=== PATIENT | male | born 1960 | race Caucasian/White ===

== ENCOUNTER 2025-05-24 12:03 | Outpatient (CLI) | payer OTHER, SELFPAY ==
--- NOTE | ~2025-05-24 | PE_ITS ---
EXAMINATION: PET_PETPSMAST_PT DATE: 05/24/2025 15:10 INDICATION: Prostate cancer TECHNIQUE: 5.587 mCi of Illucix Ga-68([id number]) was administered i.v. Low dose computed whit graphy (CT) images were acquired from the base of the brain to the base of the brain to the proximal thighs for attenuation correction and anatomic localization. Positron emission tomography (PET) image s were acquired in the same distribution beginning 94 minutes after injection. Images including fused PET/CT images were reconstructed in axial, coronal, and sagittal planes. Automated exposure control technique was employed. The dose-length product was 1193.12mGy-cm. COMPARISON: None FINDINGS: Head/neck: Typical pattern of symmetric physiologic increased activity in the lacrimal, parotid and submandibula r glands as well as along the mucosa of the nasal and oral cavities, pharynx and hypopharynx. No path ologically enlarged cervical lymphadenopathy or suspicious foci of increased uptake in the visualized head or neck. Chest: Mild respiratory motion in the lungs. No suspicious pulmonary nodules, pneumonia, pulmonary edema or pleural effusion. Mild cardiomegaly. Atherosclerotic coronary artery calcific location. No pericardia l effusion. Fusiform ascending thoracic aortic aneurysm measuring 5.1 x 4.6 cm. No pathologically enl arged or PSMA avid thoracic lymphadenopathy. Abdomen/pelvis/proximal thighs: Physiologic renal accumulation and excretion of activity in the kidneys, bladder and along portions o f ureters. 1.8 cm exophytic cyst at the lower pole the left kidney. Prostatomegaly measuring 5.5 x 4. 7 cm. There is minimal asymmetric uptake at the left side of the prostate with maximal SUV of 2.2. No rmal degree and slightly heterogenous pattern of increased uptake throughout the liver and spleen wit hout radiologic correlate or dominant PSMA avid lesion. The gallbladder, pancreas and bilateral adren al glands are normal. Moderate uptake scattered throughout the bowels with typical duodenal and proxi mal jejunal predominance and without radiologic correlate, also likely physiologic. Moderate sigmoid and descending colon predominant diverticulosis without adjacent from trace stranding to suggest dive rticulitis. Appendix is normal. No other abnormal foci of increased uptake or pathologically enlarged lymphadenopathy in the abdomen, pelvis or proximal thighs. Musculoskeletal: Severe lower cervical and moderate thoracic and lumbar spondylosis. No suspicious lytic, blastic or a bnormally PSMA avid bone lesions. IMPRESSION: 1. Prostatomegaly with very mild asymmetric increased uptake at the left side of the prostate consist ent with reported primary prostate cancer. Unclear where this is due to a low tumor burden in the pro state or low degree of PSMA avidity, the latter which could decrease sensitivity for metastatic disea se. No lesions suspicious for metastatic disease identified. Reviewed, dictated and finalized at location A. IMPRESSION: 1. Prostatomegaly with very mild asymmetric increased uptake at the left side o f the prostate consistent with reported primary prostate cancer. Unclear where this is due to a low tumor burden in the prostate or low degree of PSMA avidity , the latter which could decrease sensitivity for metastatic disease. No lesion s suspicious for metastatic disease identified.
--- OUTSIDE RECORDS SUMMARY | 2025-05-24 12:12 | XMS_ITS | Referral Summary ---
Author Organization [facility] Address [id number] [place] [id number] Care Team Providers Care Layboy Tender Name Role Phone Nikhil Rizzo MD Primary Care Provider [phone] Encounters Date Type Department Care Team Description 04/29/2025 Orders Only [facility] [address] [phone] Nikhil Rizzo MD 04/29/2025 9:45 AM CDT - 04/29/2025 10:30 AM CDT Surgery [facility] Operating Room 1 [place] [address] Aki Venegas MD URONAV GUIDED PROSTATE BIOPSY 04/29/2025 9:49 AM CDT Anesthesia Event [facility] Operating Room 1 [place] [address] Temo Dubon DO Reynolds, Ethan Emerson, MD 04/29/2025 7:03 AM CDT - 04/29/2025 11:47 AM CDT Hospital Encounter [facility] Operating Room 1 [place] [address] Aki Venegas MD Malignant neoplasm of prostate (HCC) Discharge Disposition: Discharge to home or self care 03/25/2025 Telephone [facility] [address] [place] [address] [address] [place] [phone] Genie Soares MD 03/19/2025 9:30 AM CDT Office Visit [facility] [address] [place] [address] [address] [place] [phone] Genie Soares MD Severe obstructive sleep apnea (Primary Dx); Hypersomnia with sleep apnea; Severe obesity (BMI 35.0-35.9 with comorbidity) ([facility]) from Last 3 Months Allergies Active Allergy Reactions Criticality Noted Date Comments Chlorhexidine Itching,Rash Medium 04/29/2025 Penicillin G Anaphylaxis High 04/24/2024 Medications aspirin 81 mg enteric coated tabletIndications: Coronary artery calcification seen on CT scan,Ascending aortic aneurysm,Hyperlipi demia LDL goal <70 Take 1 tablet (81 mg total) by mouth daily 30 tablet 11 2 Active fluticasone propion-salmeteroL (Advair Diskus) 250-50 mcg/dose diskus inhaler Inhale 1 puff 2 (two) times a day Rinse mouth with water after use. Do not swallow. 60 each 11 4 Active lisinopril-hydroCH LOROthiazide (ZESTORETIC) 10-12.5 mg per tablet Take 1 tablet by mouth daily 90 tablet 3 5 Active metoprolol XL (TOPROL-XL) 25 mg extended release tabletIndications: Essential hypertension,Ascen ding aortic aneurysm Take 0.5 tablets (12.5 mg total) by mouth daily 45 tablet 1 5 Active tamsulosin (FLOMAX) 0.4 mg extended release capsule 5 Active atorvastatin (LIPITOR) 20 mg tabletIndications: Ascending aortic aneurysm TAKE 1 TABLET (20 MG TOTAL) BY MOUTH DAILY 90 tablet 3 5 Active albuterol-budesoni de 90-80 mcg/actuation HFA aerosol inhaler Inhale 1 puff every 6 (six) hours 21.4 g 11 5 04/29/20 26 Active Active Problems Problem Noted Date Diagnosed Date Malignant neoplasm of prostate 02/24/2025 Class 1 obesity due to exces s calories with serious comorbidity and body mass index (BMI) of 34.0 to 34.9 in adult 10/25/2023 Assessment & Plan (04/24/2024 12:37 PM CDT): Stable, improving; continues to have weight loss; patient is working with , has generally healthy diet; regular physical, plans to start exercise routines Assessment & Plan (10/25/2023 12:06 PM BIOLOGICAL SCIENCES PROFESSOR): Not controlled; patient continues to gain weight; reports difficulty with exercise and activity due to osteoarthritis of bilateral knees, worse in left Recommend dietary changes, limiting caloric intake through limiting portion sizes and limiting high-calorie foods Encourage 30 minutes moderate intensity exercise 5 days per week Primary osteoarthritis of both knees 10/25/2023 Assessment & Plan (04/24/2024 12:37 PM CDT): Continues to have pain and some limitations in left knee; right ankle; patient following with Orthopedic surgery for continued evaluation Assessment & Plan (10/25/2023 12:07 PM BIOLOGICAL SCIENCES PROFESSOR): Patient has varus deformity of bilateral knees; [id number] in left medial compartment; patient follows with orthopedics Would recommend steroid injections to help with pain relief until able to perform surgical treatment Benign prostatic hyperplasia with urinary freque ncy 07/04/2022 Assessment & Plan (10/25/2023 12:05 PM BIOLOGICAL SCIENCES PROFESSOR): Has been having symptoms associated with difficulty urinating, no nocturia, but weak stream in morning Increased frequency of urination during the day Will refer to Urology for evaluation, check PSA; Coronary artery calcification seen on CT scan Assessment & Plan (04/24/2024 12:37 PM CDT): Stable, well controlled; no chest pain pressure; no changes in exercise tolerance Continue ASA 81 mg daily, atorvastatin, blood pressure control as above Assessment & Plan (10/25/2023 12:05 PM BIOLOGICAL SCIENCES PROFESSOR): Well controlled, family history of heart disease Continue ASA 81 mg daily, Lipitor 20 mg daily Establishing care with new doctor, encounter for 12/31/2018 Ascending aortic aneurysm 12/31/2018 Assessment & Plan (04/24/2024 12:37 PM CDT): Stable, well controlled; follows with Cardiology for surveillance; most recent imaging demonstrates stable size Continue metoprolol 12.5 mg daily Assessment & Plan (10/25/2023 12:05 PM BIOLOGICAL SCIENCES PROFESSOR): Stable, no major concerns; likely congenital and related to family; has annual imaging to maintain stability Follows with cardiology Continue metoprolol 12.5 mg daily Murmur, heart 10/07/2018 Essential hypertension 05/11/2017 Assessment & Plan (04/24/2024 12:36 PM CDT): Stable, well controlled, blood pressure at goal No chest pain or pressure; orthostatics Continue lisinopril-hydrochlorothiazide 10-12.5 mg daily; metoprolol 12.5 mg daily Assessment & Plan (10/25/2023 12:04 PM BIOLOGICAL SCIENCES PROFESSOR): Stable, well controlled; blood pressure at goal Follows with cardiology Continue lisinopril-hydrochlorothiazide 10-12.5 mg daily, metoprolol 12.5 mg daily Mild intermittent asthma without complication Assessment & Plan (04/24/2024 12:36 PM CDT): Stable, well controlled; SpO2 was low normal; no significant dyspnea on exertion Continue Advair 1 puff b.i.d. Assessment & Plan (10/25/2023 12:04 PM BIOLOGICAL SCIENCES PROFESSOR): Stable, well controlled; does require use of albuterol p.r.n. in the morning, good relief with Advair throughout the day Continue Advair 1 puff daily, albuterol p.r.n. Hyperlipidemia LDL goal <70 09/15/2012 Overview (01/25/2017): Hyperlipidemia Assessment & Plan (04/24/2024 12:36 PM CDT): Stable, well controlled, lipids at goal; no major side effects from medication Continue atorvastatin 20 mg daily Assessment & Plan (10/25/2023 12:04 PM BIOLOGICAL SCIENCES PROFESSOR): Stable, well controlled; lipids at goal Continue atorvastatin 20 mg daily Severe obstructive sleep apnea 09/15/2012 Overview (01/25/2017): NAI on CPAP Assessment & Plan (04/24/2024 12:36 PM CDT): Stable, uses CPAP nightly Assessment & Plan (10/25/2023 12:04 PM BIOLOGICAL SCIENCES PROFESSOR): Stable, well controlled; started use CPAP, using nightly with good relief Resolved Problems Problem Noted Date Diagnosed Date Resolved Date Tired 12/31/2018 05/05/2019 Chest pain 10/07/2018 05/05/2019 Tobacco use 10/07/2018 05/05/2019 Adjustment disorder with anxious mood 09/15/2012 05/11/2017 Overview (01/24/2017): Adjustment disorder with anxiety Hypertension 09/15/2012 05/11/2017 Overview (01/25/2017): Hypertension Immunizations Immunization Administration Dates Next Due Influenza, Quadrivalent, Spl it, Preservative Free, Intramuscular 08/28/2018 Influenza, Unspecified 10/25/2023(Deferr ed: Patient Refused),08/09/2022(Deferred: Patient Refused),11/07/2021(Deferred: Patient Refused),05/17/2021(Deferred: Patient Refused),07/21/2020(Deferred: Patient Refused),05/10/2020(Deferred: Patient Refused),07/21/2019(Deferred: Patient Refused) Moderna SARS-CoV-2 Monovalen t Vaccination (12+ YRS) 03/28/2021,02/15/2021 Td, adsorbed 11/13/2009 Tdap 11/23/2014,10/28/2009 ZOSTER Recombinant 10/06/2020,05/05/2020 Social History Tobacco Use Types Packs/Day Years Used Date Smoking Tobacco: Never Smokeless Tobacco: Never Tobacco Cessation:Counseling Given: Not Answered Alcohol Use Standard Drinks/Week Comments Yes 0 (1 standard drink = 0.6 oz pur e alcohol) AUDIT-C Answer Date Recorded Q1: How often do you have a drink containing alc ohol? 2-3 times a week 04/29/2025 Q2: How many drinks containi ng alcohol do you have on a typical day when you are drinking? 3 or 4 04/29/2025 Q3: How often do you have si x or more drinks on one occasion? Monthly 04/29/2025 PHQ-2 Answer Date Recorded PHQ-2 Total Score (If total score is 3 or more points, staff should administer the PHQ-9) 1 10/25/2023 Personal Safety Answer Date Recorded Have you ever been in or are you currently in a harmful physical or emotional relationship or is someone making you feel afraid or unsafe? Denies 04/29/2025 Sex and Gender Information Value Date Recorded Sex Assigned at Not on file Legal Sex Male 1:55 AM BIOLOGICAL SCIENCES PROFESSOR Gender Identity Not on file Sexual Orientation Not on file Last Filed Vital Signs Vital Sign Reading Time Taken Comments Blood Pressure 137/87 04/29/2025 11:30 AM CDT Pulse 59 04/29/2025 11:30 AM CDT Temperature 36.1 C (97 F) 04/29/2025 11:30 AM CDT Respiratory Rate 18 04/29/2025 11:30 AM CDT Oxygen Saturation 99% 04/29/2025 11:30 AM CDT Inhaled Oxygen Concentration - - Weight 91.4 kg (201 lb 8 oz) 04/29/2025 7:48 AM CDT Height 162.6 cm (5' 4) 04/29/2025 7:48 AM CDT Body Mass Index 34.59 04/29/2025 7:48 AM CDT Plan of Treatment Not on file Procedures Procedure Name Priority Date/Time Associated Diagnosis Comments SURGICAL PATHOLOGY Routine 04/29/2025 10 :40 AM CDT Malignant neoplasm of prostate (HCC) URONAV GUIDED PROSTATE BIOPSY 04/29/2025 9:49 AM CDT Malignant neoplasm of prostate (HCC) POTASSIUM, WHOLE BLOOD STAT 04/29/2025 7:52 AM CDT PSA SCREEN Routine 10/25/2023 11:04 AM BIOLOGICAL SCIENCES PROFESSOR Screening PSA (prostate specific antigen) HEPATITIS C SCREENING Routine 12/17/2016 COLONOSCOPY Routine 11/21/2012 from Last 3 Months or Most Recently Relevant to Health Maintenance Results * Surgical pathology (04/29/2025 10:40 AM CDT) Tissue (Prostate, Needle Biopsy) 04/29/2025 10:00 AM CDT Tissue specimen (specimen) (Prostate, Needle Biopsy) 04/29/2025 10:00 AM CDT Tissue specimen (specimen) (Prostate, Needle Biopsy) 04/29/2025 10:00 AM CDT Tissue specimen (specimen) (Prostate, Needle Biopsy) 04/29/2025 10:00 AM CDT Tissue specimen (specimen) (Prostate, Needle Biopsy) 04/29/2025 10:00 AM CDT Tissue specimen (specimen) (Prostate, Needle Biopsy) 04/29/2025 10:00 AM CDT Tissue specimen (specimen) (Prostate, Needle Biopsy) 04/29/2025 10:00 AM CDT Tissue specimen (specimen) (Prostate, Needle Biopsy) 04/29/2025 10:00 AM CDT Tissue specimen (specimen) (Prostate, Needle Biopsy) 04/29/2025 10:00 AM CDT Tissue specimen (specimen) (Prostate, Needle Biopsy) 04/29/2025 10:00 AM CDT Tissue specimen (specimen) (Prostate, Needle Biopsy) 04/29/2025 10:00 AM CDT Tissue specimen (specimen) (Prostate, Needle Biopsy) 04/29/2025 10:00 AM CDT Tissue specimen (specimen) (Prostate, Needle Biopsy) 04/29/2025 10:04 AM CDT Narrative PATHOLOGY [facility] - 05/05/2025 9:28 PM CDT EPIC results best viewed via link to PDF [facility] Department of Pathology [address] [place] [address] Note to Patients: This report may contain a detailed description of human tissue sent by a health care provider to the laboratory for pathologic evaluation. The content of this report is essential for diagnosis and may provide important critical findings. This information may be unfamiliar to patients to review without a medical professional present. It is advised that the patient review this report in the presence of a health care provider who can answer questions and explain the details. Final Report Patient Name: ANGEL BACON Address: [address] [place] [address]- Gender: M : 1960 (Age: 65) Service: Surgery Location: [facility] Hospital #: [id number] Patient Type: [facility] Taken: 04/29/2025 Received: 04/29/2025 Accessioned: 04/29/2025 Reported: 05/05/2025 Physician(s):Aki Venegas M.D. Diagnosis: A-F, H, K. Prostate (RLB, RMB, RLM, RMM, RLA, RMA, LMB, LLA), needle biopsies: - Benign prostatic tissue. G, I, J, L, M. Prostate (LLB, LLM, LMM, LMA, region of interest), needle biopsies: - Adenocarcinoma (see the synoptic table below for additional details). Synoptic Diagnosis: Part Container Cores Length (mm) Diagnosis Jamey score, grade group, and extent A. RLB One 20 Benign B. RMB One 18 Benign C. RLM One 18 Benign D. RMM Two 16 Benign E. RLA One 14 Benign F. RMA One 12 Benign G. LLB One 16 Adenocarcinoma 3 + 4 = 7 (20% pattern 4), grade group 2, 4 mm, 25% H. LMB One 18 Benign I. LLM Two 12 Adenocarcinoma 3 + 4 = 7 (20% pattern 4), grade group 2, 2 mm, 15% J. LMM One 12 Adenocarcinoma 4 + 3 = 7 (60% pattern 4), grade group 3, 2 mm, 15% K. LLA One 18 Benign L. LMA Three 16 Adenocarcinoma 4 + 3 = 7 (90% pattern 4), grade group 3, <1 mm, <5% M. Kirsten #1 Four 50 Adenocarcinoma 3 + 4 = 7 (30% pattern 4), grade group 2, 10 mm, 20% Kolton Rainey MD Report Electronically Reviewed and Signed Out By Kolton Rainey MD 05/05/2025 21:28:26 Specimen(s) Received: A: Right lateral base B: Right medial base C: Right lateral mid D: Right medial mid E: Right lateral apex F: Right medial apex G: Left lateral base H: Left medial base I: Left lateral mid J: Left medial mid K: Left lateral apex L: Left medial apex M: Prostate - region of interest Microscopic Description: G, I, J, L, M. Specimens from these sites show similar findings and will be described together. Sections show adenocarcinoma (see the synoptic table below for additional details). PIN-4 stains are performed with appropriately reactive controls (blocks G1, I1, J1, L1, M1. ) and show loss of the basal cell layers and increased AMACR expression in the adenocarcinoma. Recommend follow-up as clinically indicated. A-F, H, K. Specimens from these sites show similar findings and will be described together. Sections show benign-appearing prostatic glands and stroma. Intradepartmental consultation: This case was also reviewed by Dr. Grider, who concurs with the above findings. Clinical History: Malignant neoplasm of prostate. Uronav guided prostate biopsy. Gross Description: The specimen is submitted in thirteen containers labeled ANGEL BACON. A. The first container is labeled right lateral base. It is 1 core of monroy tissue measuring 2 cm. Entirely in A. B. The second container is labeled right medial base. It is 1 core of monroy tissue measuring 1.8 cm. Entirely in B. C. The third container is labeled right lateral mid. It is 1 core of monroy tissue measuring 1.8 cm. Entirely in C. D. The fourth container is labeled right medial mid. It is 2 cores of monroy tissue between 0.5 and 1.1 cm. Entirely in D. E. The fifth container is labeled right lateral apex. It is 1 core of monroy tissue measuring 1.4 cm. Entirely in E. F. The sixth container is labeled right medial apex. It is 1 core of monroy tissue measuring 1.2 cm. Entirely in F. G. The seventh container is labeled left lateral base. It is 1 core of monroy tissue measuring 1.6 cm. Entirely in G. H. The eighth container is labeled left medial base. It is 1 core of monroy tissue measuring 1.8 cm. Entirely in H. I. The ninth container is labeled left lateral mid. It is 2 cores of monroy tissue between 0.3 and 0.9 cm. Entirely in I. J. The tenth container is labeled left medial mid. It is 1 core of monroy tissue measuring 1.2 cm. Entirely in J. K. The eleventh container is labeled left lateral apex. It is 1 core of monroy tissue measuring 1.8 cm. Entirely in K. L. The twelfth container is labeled left medial apex. It is 3 cores of monroy tissue between 0.5 and 0.6 cm. Entirely in L. M. The thirteenth container is labeled prostate region of interest. It is 4 cores of monroy tissue between 1.5 and 2.0 cm. Entirely in M. T.A. Adan Woo P.A./Kingsley Waldron M.D. REPORT IMAGES AND SCANNED DOCUMENTS, IF INCLUDED, ONLY VIEWABLE IN PDF VERSION OF REPORT The performance characteristics of some immunohistochemical stains, fluorescence in-situ hybridization tests and immunophenotyping by flow cytometry cited in this report (if any) were determined by the Surgical Pathology Department at [facility] as part of an ongoing manager quality systems program and in compliance with federally mandated regulations drawn from the Clinical Laboratory Improvement Act of 1988 (CLIA '88). Some of these tests rely on the use of analyte specific reagents and are subject to specific labeling requirements by the US Food and Drug Administration. Such diagnostic tests may only be performed in a facility that is certified by the Department of Health and Human Services as a high complexity laboratory under CLIA '88. The FDA has determined that such clearance or approval is not necessary. This test is used for clinical purposes. It should not be regarded as investigational or for research. Nevertheless, federal rules concerning the medical use of analyte specific reagents require that the following disclaimer be attached to the report: This test was developed and its performance characteristics determined by the Surgical Pathology Department [facility]. It has not been cleared or approved by the U. S. Food and Drug Administration. Note for decalcified specimens: This assay has not been validated on decalcified tissues. Results should be interpreted with caution given the possibility of false negativity on decalcified specimens Aki Venegas MD LAB PATHOLOGY ORDERA BLES Final Result PATHOLOGY [facility] [address] [place] [address] * Potassium, whole blood (04/29/2025 7:52 AM CDT) Potassium, bld 3.8 3.3 - 4.9 mmol/L Comment: Interpretive Data This method is not able to assess for hemolysis, which may falsely increase potassium concentrations. If further testing is needed to evaluate this result, consider in-laboratory plasma potassium. Current Interpretive Data was last revised on 2022. Blood 04/29/2025 7:52 AM CDT 04/29/2025 7:55 AM CDT Jr Abad MD LAB BLOOD ORDERABLES F inal Result [facility] [address] [facility] Department [place] [address] * (ABNORMAL) PSA screen (10/25/2023 11:04 AM BIOLOGICAL SCIENCES PROFESSOR) PSA-Total 5.90(H) <=5.40 ng/mL [facility] CODY Comment: Interpretive Data AGE SEX REFERENCE INTERVAL 0 minutes-150 years Female None 0 minutes-49 years Male None 50-59 years Male 0-3.90 60-69 years Male 0-5.40 70-79 years Male 0-6.20 80-150 years Male 0-6.20 The Сергей PSA Total assay procedure was used. Results from different manufacturers or methods may not be comparable. Serial testing should be performed using the same method. Current interpretive data last revised 22. Blood 10/25/2023 11:0 4 AM BIOLOGICAL SCIENCES PROFESSOR 10/25/2023 7:16 PM BIOLOGICAL SCIENCES PROFESSOR Nikhil Rizzo MD LAB BLOOD ORDERABLES Aparna l Result Performing Organization Address City/[facility]/ZIP Co de Phone Number [facility] [address] Department [place] [address] * HEPATITIS C SCREENING (12/17/2016) HEP C Normal Historical Provider HEALTH MAINTENANCE Final Result * COLONOSCOPY (11/21/2012) Colonoscopy Normal Historical Provider HEALTH MAINTENANCE Final Result from Last 3 Months or Most Recently Relevant to Health Maintenance [place] [employer] Care Teams Layboy Tender Relationship Specialty Start Date End Date [place] [address] PCP - General Family Medicine 10/08/23
--- OUTSIDE RECORDS SUMMARY | 2025-05-24 12:12 | XMS_ITS | Clinical Summary ---
Author Organization [facility] Address [address] [place] [address] Phone Care Team Providers Care Amf Mechanic Name Role Phone Ernst Euceda MD Primary Care Provider [phone] Social History Tobacco Use Types Packs/Day Years Used Date Smoking Tobacco: Never Assessed Sex and Gender Information Value Date Recorded Sex Assigned at Not on file Legal Sex Male 1:55 PM CDT Gender Identity Not on file Sexual Orientation Not on file Plan of Treatment Health Maintenance Due Date Last Done Comments Hepatitis C Virus (HCV) Screening 1960 TdaP Immunization 1960 Cologuard 2006 Colonoscopy 2006 Colorectal Cancer Screening 2006 Immunochemical Fecal Occult Blood 2006 Pneumococcal Immunization (5 0+ years) (1 of 1 - PCV) 2011 SARS-COV-2 Immunization ( - season) 2024 11/14/2021, 03/28/2021, 02/15/2021 Influenza Immunization (#1) 2025 Respiratory Syncytial Virus (RSV) Immunization (Adult) (1 - 1-dose 75+ series) 01/11/2036 Zoster Immunization Completed 10/06/2020, 05/05/2020 Hepatitis B Immunization Aged Out No longer eligible based on patient's age to complete this topic Human Papillomavirus (HPV) Immunization Aged Out No longer eligible b ased on patient's age to complete this topic Meningococcal Immunization (ACWY) Aged Out No longer eligible b ased on patient's age to complete this topic Rotavirus Immunization Aged Out No lo nger eligible based on patient's age to complete this topic Insurance [facility] Care Teams Amf Mechanic Relationship Specialty Start Date End Date Ernst Euceda MD [address] [address] PCP - General Internal Medicine 08/17/21
--- OUTSIDE RECORDS SUMMARY | 2025-05-24 12:12 | XMS_ITS | Clinical Summary ---
Author Organization [facility] Address [address] [place] [id number] Care Team Providers Care Billiard Player Name Role Phone Nikhil Rizzo MD Primary Care Provider [phone] Allergies Active Allergy Reactions Criticality Noted Date [...] routines Assessment & Plan (10/25/2023 12:06 PM RESIN PAINTER): Not controlled; patient continues to gain weight; [...] evaluation Assessment & Plan (10/25/2023 12:07 PM RESIN PAINTER): Patient has varus deformity of bilateral knees; [id number] in left medial compartment; patient follows with orthopedics Would recommend steroid injections to help with pain relief until able to perform surgical treatment Benign prostatic hyperplasia with urinary freque ncy 07/04/2022 Assessment & Plan (10/25/2023 12:05 PM RESIN PAINTER): Has been having symptoms associated with difficulty [...] above Assessment & Plan (10/25/2023 12:05 PM RESIN PAINTER): Well controlled, family history of heart disease Continue ASA 81 mg daily, Lipitor 20 mg daily Establishing care with new doctor, encounter for 12/31/2018 Ascending aortic aneurysm 12/31/2018 Assessment & Plan (04/24/2024 12:37 PM CDT): Stable, well controlled; follows with Cardiology for surveillance; most recent imaging demonstrates stable size Continue metoprolol 12.5 mg daily Assessment & Plan (10/25/2023 12:05 PM RESIN PAINTER): Stable, no major concerns; likely congenital and [...] daily Assessment & Plan (10/25/2023 12:04 PM RESIN PAINTER): Stable, well controlled; blood pressure at goal Follows with cardiology Continue lisinopril-hydrochlorothiazide 10-12.5 mg daily, metoprolol 12.5 mg daily Mild intermittent asthma without complication Assessment & Plan (04/24/2024 12:36 PM CDT): Stable, well controlled; SpO2 was low normal; no significant dyspnea on exertion Continue Advair 1 puff b.i.d. Assessment & Plan (10/25/2023 12:04 PM RESIN PAINTER): Stable, well controlled; does require use of [...] daily Assessment & Plan (10/25/2023 12:04 PM RESIN PAINTER): Stable, well controlled; lipids at goal Continue atorvastatin 20 mg daily Severe obstructive sleep apnea 09/15/2012 Overview (01/25/2017): NAI on CPAP Assessment & Plan (04/24/2024 12:36 PM CDT): Stable, uses CPAP nightly Assessment & Plan (10/25/2023 12:04 PM RESIN PAINTER): Stable, well controlled; started use CPAP, using nightly with good relief Resolved Problems Problem Noted Date Diagnosed Date Resolved Date Tired 12/31/2018 05/05/2019 Chest pain 10/07/2018 05/05/2019 Tobacco use 10/07/2018 05/05/2019 Adjustment disorder with anxious mood 09/15/2012 05/11/2017 Overview (01/24/2017): Adjustment disorder with anxiety Hypertension 09/15/2012 05/11/2017 Overview (01/25/2017): Hypertension Encounters Date Type Department Care Team Description 04/29/2025 9:49 AM CDT Anesthesia Event [facility] Operating Room [address] [place] [address] Temo Dubon DO Reynolds, Ethan Emerson, MD 04/29/2025 9:45 AM CDT - 04/29/2025 10:30 AM CDT Surgery [facility] Operating Room [address] [place] [address] Aki Venegas MD URONAV GUIDED PROSTATE BIOPSY 04/29/2025 7:03 AM CDT - 04/29/2025 11:47 AM CDT Hospital Encounter [facility] Operating Room [address] [place] [address] kAi Venegas MD Malignant neoplasm of prostate (HCC) Discharge Disposition: Discharge to home or self care 04/29/2025 Orders Only [facility] [address] [phone] Nikhil Rizzo MD 03/25/2025 Telephone [facility] [address] [place] [phone] Genie Soares MD 03/19/2025 9:30 AM CDT Office Visit [facility] [address] [place] [phone] Genie Soares MD Severe obstructive sleep apnea (Primary Dx); Hypersomnia with sleep apnea; Severe obesity (BMI 35.0-35.9 with comorbidity) ([facility]) from Last 3 Months Immunizations Immunization Administration Dates Next Due Influenza, Quadrivalent, Spl it, Preservative Free, Intramuscular 08/28/2018 Influenza, Unspecified 10/25/2023(Deferr ed: Patient Refused),08/09/2022(Deferred: Patient Refused),11/07/2021(Deferred: Patient Refused),05/17/2021(Deferred: Patient Refused),07/21/2020(Deferred: Patient Refused),05/10/2020(Deferred: Patient Refused),07/21/2019(Deferred: Patient Refused) Moderna SARS-CoV-2 Monovalen t Vaccination (12+ YRS) 03/28/2021,02/15/2021 Td, adsorbed 11/13/2009 Tdap 11/23/2014,10/28/2009 ZOSTER Recombinant 10/06/2020,05/05/2020 Surgical History Surgery Date Site/Laterality Comments OTHER SURGICAL HISTORY UMBILICAL HERNIA SURG VASECTOMY Vasectomy OTHER SURGICAL HISTORY RECURRENT SHOULDER DISLOCATION: L SHOULDER SURG HEMORRHOID SURGERY Hemorrhoidectomy INCISIONAL HERNIA REPAIR 2011 INCISIONAL HERNIA REPAIR ROTATOR CUFF REPAIR left rotator cuff surgery KNEE SURGERY left knee surgery UMBILICAL HERNIA REPAIR umbilical hernia Medical History Medical History Date Comments Hx Other Medical RECURRENT [place] DISLOCATION Hypertension Hypertension Family History Medical History Relation Name Comments Coronary artery disease Father Renetta nary artery disease, premature; /Coronary artery disease; Heart attack Father Myocardial infa rction; Before age 60 Other Father Blood clot in l richa; Uterine cancer Mother Cancer -uteri ne; Relation Name Status Comments Father Alive Mother Social History Tobacco Use Types Packs/Day Years [...] on file Legal Sex Male 1:55 AM RESIN PAINTER Gender Identity Not on file Sexual Orientation Not on file Obstetrics History Last Filed Vital Signs Vital Sign Reading [...] 04/29/2025 7:48 AM CDT Plan of Treatment Health Maintenance Due Date Last Done Comments Hepatitis B Screening 1979 Pneumococcal vaccine <65 (1 of 2 - PCV) 01/11/1980 Regular Well Visit/Exam 18-64 05/17/2022, 05/10/2020, 05/05/2019, Additional history exists Colon Cancer Screening-Colonoscopy 11/21/2022 11/21/2012, 11/20/2012 Covid-19 Vaccine (4 - 2023-2 5 season) 2024 11/14/2021, 03/28/2021, 02/15/2021 Depression Screening 10/25/2024 10/25/2023, 10/25/2023, 07/04/2022, Additional history exists Prostate Cancer Screening-PSA 10/25/2024, 01/08/2022, 05/17/2021, Additional history exists DTaP/Tdap/Td Vaccine (4 - Td or Tdap) 11/23/2024 11/23/2014, 11/13/2009, 10/28/2009 Influenza Vaccine (#1) 2025 08/28/2018 Colon Cancer Screening-CT Colonography Discontinued 11/21/2012, 11/20/2012 Colon Cancer Screening-DNA Stool Discontinued 11/21/19 13, 11/20/2012 Colon Cancer Screening-FIT Discontinued 11/21/2012, Colon Cancer Screening-Sigmoidoscopy Discontinued 11/21/2012, 11/20/2012 Hepatitis C Screening Completed 12/17/2016 Zoster Vaccine Completed 10/06/2020, 05/05/2020 Procedures Procedure Name Priority Date/Time Associated Diagnosis Comments SURGICAL PATHOLOGY Routine 04/29/2025 10 :40 AM CDT Malignant neoplasm of prostate (HCC) URONAV GUIDED PROSTATE BIOPSY 04/29/2025 9:49 AM CDT Malignant neoplasm of prostate (HCC) POTASSIUM, WHOLE BLOOD STAT 04/29/2025 7:52 AM CDT PSA SCREEN Routine 10/25/2023 11:04 AM RESIN PAINTER Screening PSA (prostate specific antigen) HEPATITIS C [...] Biopsy) 04/29/2025 10:04 AM CDT Narrative PATHOLOGY [facility] - 05/05/2025 9:28 PM CDT EPIC results best viewed via link to PDF [facility] Department of Pathology [address] [place] [address] Note to Patients: This report may contain [...] Final Report Patient Name: ANGEL BACON Address: [address] [place] [address]- Gender: M : 1960 (Age: 65) Service: Surgery Location: [facility] Hospital #: [id number] Patient Type: [facility] Taken: 04/29/2025 Received: 04/29/2025 Accessioned: 04/29/2025 Reported: 05/05/2025 Physician(s):Aki Venegas M.D. Diagnosis: A-F, H, K. Prostate (RLB, RMB, RLM, RMM, RLA, RMA, LMB, LLA), needle biopsies: - Benign prostatic tissue. G, I, J, L, M. Prostate (LLB, LLM, LMM, LMA, region of interest), needle biopsies: - Adenocarcinoma (see the synoptic table below for additional details). Synoptic Diagnosis: Part Container Cores Length (mm) Diagnosis [place] score, grade group, and extent A. RLB [...] determined by the Surgical Pathology Department at [facility] as part of an ongoing housing quality standard inspector program and in compliance with federally mandated [...] characteristics determined by the Surgical Pathology Department [facility]. It has not been cleared or approved by the U. S. Food and Drug Administration. Note for decalcified specimens: This assay has not been validated on decalcified tissues. Results should be interpreted with caution given the possibility of false negativity on decalcified specimens Aki Venegas MD LAB PATHOLOGY ORDERA BLES Final Result PATHOLOGY [facility] [address] [place] [address] * Potassium, whole blood (04/29/2025 7:52 AM [...] LAB BLOOD ORDERABLES F inal Result [facility] [address] [facility] Department [place] [address] * (ABNORMAL) PSA screen (10/25/2023 11:04 AM RESIN PAINTER) PSA-Total 5.90(H) <=5.40 ng/mL [facility] Comment: Interpretive Data AGE SEX REFERENCE INTERVAL [...] revised 22. Blood 10/25/2023 11:0 4 AM RESIN PAINTER 10/25/2023 7:16 PM RESIN PAINTER Nikhil Rizzo MD LAB BLOOD ORDERABLES Aparna l Result Performing Organization Address City/[facility] [[email or web address]] Co de Phone Number [facility] [phone] [address] Department [place] [address] * HEPATITIS C SCREENING (12/17/2016) HEP C Normal Historical Provider HEALTH MAINTENANCE Final Result * COLONOSCOPY (11/21/2012) Colonoscopy Normal Historical Provider HEALTH MAINTENANCE Final Result from Last 3 Months or Most Recently Relevant to Health Maintenance [place] [employer] Care Teams Billiard Player Relationship Specialty Start Date End Date Nikhil Rizzo MD [address] [place] [address] PCP - General Family Medicine 10/08/23
== END 2025-05-24 12:04 | disposition home or self-care (01) ==
PROVIDERS: Visit Provider Urology
DX: C61 Malignant neoplasm of prostate (principal)
CPT/HCPCS: 78815; A9596